=== PATIENT | female | born 1940 | race Caucasian/White ===

== ENCOUNTER → 2017-04-13 15:52 | Outpatient (CLI) | payer OTHER ==
[~2017-04-13] VITALS: Ht 152.4 cm; Wt 60.3 kg
== END | disposition home or self-care (01) ==
LOC: PPHC 15:52
DX: R09.81 Nasal congestion (principal); R05 Cough

== ENCOUNTER 2021-01-06 12:49 | Outpatient (CLI) | payer OTHER | END 2021-01-06 12:59 | disposition home or self-care (01) | LOC: RAD 12:49 | PROVIDERS: ATTEND Physical Medicine & Rehabilitation | DX: M54.2 Cervicalgia (principal); M25.552 Pain in left hip ==

== ENCOUNTER 2021-03-06 09:00 | Outpatient (CLI) | payer OTHER | END 2021-03-06 09:30 | disposition home or self-care (01) | LOC: PPH VACUNA 09:00 | PROVIDERS: ATTEND Emergency Medicine Pediatric Emergency Medicine | DX: Z23 Encounter for immunization (principal) ==

== ENCOUNTER 2021-03-24 16:00 | Outpatient (CLI) | payer OTHER | END 2021-03-24 16:05 | disposition home or self-care (01) | LOC: LAB 16:00 | PROVIDERS: ATTEND Obstetrics & Gynecology | DX: R05.8 Other specified cough (principal); Z20.828 Contact with and (suspected) exposure to other viral communicable diseases ==

== ENCOUNTER → 2022-02-15 10:45 | Outpatient (CLI) | payer OTHER | END | disposition home or self-care (01) | LOC: PPH VACUNA 10:45 | PROVIDERS: ATTEND Emergency Medicine Pediatric Emergency Medicine | DX: Z23 Encounter for immunization (principal) ==

== ENCOUNTER 2022-04-13 13:59 | Outpatient (CLI) | payer OTHER | END 2022-04-13 14:05 | disposition home or self-care (01) | LOC: RAD 13:59 | PROVIDERS: ATTEND Internal Medicine | DX: J18.9 Pneumonia, unspecified organism (principal) ==